=== PATIENT | female | born 1975 | race African-American/Black ===

== ENCOUNTER 2018-01-11 19:16 | Emergency (ER) | payer SELFPAY ==
[~2018-01-11] VITALS: Ht 167.6 cm; Wt 90.9 kg
[2018-01-11] MEDS ORDERED: KETOROLAC TROMETHAMINE 30 MG/ML VIAL IM ONE (20:15)
[2018-01-11 20:35] VITALS: BP 141/74
== END 2018-01-11 20:57 | disposition home or self-care (01) ==
LOC: EMS 19:19
DX: M54.30 Sciatica, unspecified side (principal)
CPT/HCPCS: 96372; 99283; J1885